=== PATIENT | female | born 1975 | race Caucasian/White ===

== ENCOUNTER → 2017-10-18 | Outpatient (CLI) | payer BC ==
--- NOTE | 2017-10-18 07:51 | MM ---
Reason for exam: screening (asymptomatic). Baseline mammogram. Physical Findings: Nurse did not find any significant physical abnormalities on exam. MG Screening Mammo w CAD Bilateral CC and MLO view(s) were taken. The breast tissue is heterogeneously dense. This may lower the sensitivity of mammography. There is no discrete abnormality. These results were verbally communicated with the patient and result sheet given to the patient on 10/18/17. ASSESSMENT: Negative, BI-RAD 1 RECOMMENDATION: Routine screening mammogram of both breasts in 1 year.
== END | disposition home or self-care (01) ==
LOC: RADMAMWWP 06:59
PROVIDERS: ATTEND Family Medicine
DX: Z12.31 Encounter for screening mammogram for malignant neoplasm of breast (principal)
CPT/HCPCS: 77067

== ENCOUNTER → 2018-09-25 | Outpatient (CLI) | payer BC ==
--- NOTE | 2018-09-25 07:53 | MR ---
EXAMINATION TYPE: MR lumbar spine wo con DATE OF EXAM: 09/25/2018 7:35 AM COMPARISON: NONE HISTORY: Drop foot , Left Multiplanar, MultiSpin echo imaging of the lumbar spine was performed. L1-L2: Normal disc appearance without desiccation. No herniation, protrusion or disc bulging. No ca nal stenosis is present. Foramina are patent bilaterally. L2-L3: Normal disc appearance without desiccation. No herniation, protrusion or disc bulging. No ca nal stenosis is present. Foramina are patent bilaterally. L3-L4: Normal disc appearance without desiccation. No herniation, protrusion or disc bulging. No ca nal stenosis is present. Foramina are patent bilaterally. L4-L5: Moderate disc desiccation noted. Subligamentous posterocentral disc herniation noted measuring of 4 mm AP dimension by 8.5 mm transverse dimension. Mild left lateral recess stenosis suggested. No evidence for central stenosis. Bilateral foramina are patent. L5-S1: Normal disc appearance without desiccation. No herniation, protrusion or disc bulging. No ca nal stenosis is present. Foramina are patent bilaterally. Lumbar segments are intact. No paraspinal masses are identified. Conus medullaris has a normal appe arance. IMPRESSION: 1. L4-5 subligamentous disc herniation with mild left lateral recess stenosis.
== END ==
LOC: RADMRIMAIN 06:58
PROVIDERS: ATTEND Internal Medicine
DX: M48.061 Spinal stenosis, lumbar region without neurogenic claudication (principal); M51.26 Other intervertebral disc displacement, lumbar region
CPT/HCPCS: 72148

== ENCOUNTER → 2021-06-24 | Outpatient (CLI) | payer OTHER ==
--- NOTE | 2021-06-24 16:16 | MR ---
EXAMINATION TYPE: MR brain wo con DATE OF EXAM: 06/24/2021 COMPARISON: None HISTORY: Parasthesias, patient reports multiple sclerosis CONTRAST: Performed utilizing 0 mL intravenous Gadavist gadolinium contrast. TECHNIQUE: Multiplanar, multiecho imaging on a 3.0 Tamiko magnet is performed through the brain. Stud y is performed within 24 hours of arrival to the hospital. The craniovertebral junction is normal. The pituitary is normal. Diffusion-weighted imaging is performed. No abnormal hyperintensity is present to suggest an acute i ntracranial infarct or acute ischemic change. Signal within the brain appears normal. No suspicious white matter changes suggest multiple sclerosis are identified. Ventricles and sulci are appropriate for the patient age. There appears to be narrowing of the left internal auditory canal of uncertain etiology. A suspicious mass is not clearly identified. Erosion is not identified. Consider closer evaluation with CT or MRI of the internal auditory canals. Correlate for left internal auditory canal neurologic changes. IMPRESSIONS: 1. MRI brain appears essentially within normal limits. No suspicious signal abnormality is identified . 2. There appears to be narrowing of the left internal auditory canal of uncertain etiology. Additiona l workup is recommended discussed above.
== END | disposition home or self-care (01) ==
LOC: RADMRIMAIN 14:55
PROVIDERS: ATTEND Psychiatry & Neurology Neurology
DX: G35 Multiple sclerosis (principal); R20.2 Paresthesia of skin
CPT/HCPCS: 70551

== ENCOUNTER → 2021-07-08 | Outpatient (CLI) | payer OTHER ==
--- NOTE | 2021-07-09 05:55 | MR ---
EXAMINATION TYPE: MR iac wo/w con DATE OF EXAM: 07/08/2021 COMPARISON: MR scan of the brain 06/24/2021 HISTORY: Left IAC narrowing, Abnormal MRI 2 weeks ago. CONTRAST: Standard multiplanar, multisequence MRI departmental protocol utilizing 8.5 mL intravenous Gadavist g adolinium contrast. Ventricles have normal size. There is no mass effect nor midline shift. There is no sign of intracran ial hemorrhage. Corpus callosum appears normal. Brainstem is intact. Sella turcica appears normal. Th ere is no evidence of a sellar mass. There is no evidence of orbital mass. There is no evidence of ce rebral edema. The posterior fossa images show some stenosis of the left internal auditory canal. This measures 2.3 mm. The right internal auditory canal appears normal and measures 4.5 mm. The acoustic nerve and vest ibular nerve or in close proximity in the left internal auditory canal. Mastoid sinuses appear intact. There is no sign of mastoiditis. The contrast images show no pathologic enhancement. There is no evidence of cerebellopontine angle ma ss. 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 The left side acoustic nerve and ves tibular nerves have normal signal pattern. Clinical significance is unclear. There is no evidence of a mass. No focal abnormality of the brain. No change compared to recent exam.
== END | disposition home or self-care (01) ==
LOC: RADMRIMAIN 16:26
PROVIDERS: ATTEND Psychiatry & Neurology Neurology
DX: H93.8X2 Other specified disorders of left ear (principal)
CPT/HCPCS: 70553; A9585

== ENCOUNTER → 2022-08-04 | Outpatient (CLI) | payer OTHER ==
--- NOTE | 2022-08-04 21:52 | CA ---
Transthoracic Echo Report Name: Deirdre Garcia Age: 47 Gender: F : 1975 Exam Date: 08/04/2022 11:27 Exam Location: [facility] Ht (in): 67 Wt (lb): 206 Ordering Physician: Braden Leggett MD Attending/Referring Phys: District Associate Judge Montserrat Correia RDCS Procedure CPT: Indications: R00.2 palpitations Cardiac Hx: Technical Quality: Contrast 1: Total Dose (mL): Contrast 2: Total Dose (mL): MEASUREMENTS (Male / Female) Normal Values 2D ECHO LV Diastolic Diameter PLAX 4.8 cm 4.2 - 5.9 / 3.9 - 5.3 cm LV Systolic Diameter PLAX 2.9 cm IVS Diastolic Thickness 1.1 cm 0.6 - 1.0 / 0.6 - 0.9 cm LVPW Diastolic Thickness 1.1 cm 0.6 - 1.0 / 0.6 - 0.9 cm LV Relative Wall Thickness 0.5 RV Internal Dim ED PLAX 2.5 cm LA Volume 53.7 cm??? 18 - 58 / 22 - 52 cm??? M-MODE Aortic Root Diameter MM 2.8 cm LA Systolic Diameter MM 3.5 cm LA Ao Ratio MM 1.2 AV Cusp Separation MM 1.8 cm DOPPLER AV Peak Velocity 139.6 cm/s AV Peak Gradient 7.8 mmHg LVOT Peak Velocity 101.3 cm/s LVOT Peak Gradient 4.1 mmHg MV Area PHT 3.7 cm??? Mitral E Point Velocity 94.5 cm/s Mitral A Point Velocity 79.6 cm/s Mitral E to A Ratio 1.2 MV Deceleration Time 206.3 ms MV E' Velocity 8.6 cm/s Mitral E to MV E' Ratio 11.0 TR Peak Velocity 223.9 cm/s TR Peak Gradient 20.0 mmHg Right Ventricular Systolic Press 25.0 mmHg FINDINGS Left Ventricle Mildly increased left ventricular wall thickness. Normal left ventricular systolic function with no obvious regional wall motion abnormalities. Left ventricular ejection fraction is estimated at 55-60 %. Normal left ventricular diastolic filling pattern. Right Ventricle Normal right ventricular size and function. Right ventricular systolic pressure within normal limits. Right Atrium Normal right atrial size. Left Atrium Mildly increased left atrial volume. Mitral Valve Structurally normal mitral valve. No mitral stenosis. Mild mitral regurgitation. Aortic Valve Trileaflet aortic valve. No aortic valve stenosis or regurgitation. Tricuspid Valve Structurally normal tricuspid valve. Mild tricuspid regurgitation. Pulmonic Valve Structurally normal pulmonic valve. Trace pulmonic regurgitation. Pericardium No pericardial effusion. Aorta Normal size aortic root and proximal ascending aorta. CONCLUSIONS Normal LV systolic function Previewed by: Dr. Milad Salazar MD (Electronically Signed) Final Date: 04 August 2022 21:51
== END | disposition home or self-care (01) ==
LOC: RADECHMAIN 11:00
PROVIDERS: ATTEND Internal Medicine
DX: R00.2 Palpitations (principal)
CPT/HCPCS: 93225; 93226; 93306

== ENCOUNTER 2023-01-25 09:33 | Day surgery (SDC) | payer OTHER ==
--- NOTE | 2023-01-23 13:20 | P.HPOR ---
History of Present Illness H&P Date: 01/23/23 Chief Complaint: Right cubital tunnel syndrome Subjective: This is a 47 year old female that presents today for initial evaluation regarding a several year history of progressively worsening right and left hand paresthesias that she states involve the entire hand, the right side is more severe than the left. She has symptoms that wake her up from sleep every night. She has noticed weakness in the hands. She has tried anti-inflammatories, and avoidance of elbow flexion. She states she used to work at a job for the last 20 years where she had her right elbow bent and resting on table for most part of the day. She denies any neck pain. Physical Examination: RUE: AIN/PIN/Radial/Ulnar/Median motor intact. Radial/Ulnar/Median SILT. 2+/4 Radial/Ulnar pulses palpated. 5/5 APB, 5/5 FDI. Negative Finkelsteins, negative CMC grind, negative Durkan's compression. LUE: AIN/PIN/Radial/Ulnar/Median motor intact. Radial/Ulnar/Median SILT. 2+/4 Radial/Ulnar pulses palpated. 5/5 APB, 5/5 FDI. Negative Finkelsteins, negative CMC grind, positive Durkan's compression. EMG/NCV: B/L Upper extremities on 11/08/22 demonstrates severe right cubital tunnel syndrome, moderate left cubital tunnel syndrome. ImaginV X-ray of the right elbow taken in office today demonstrates no abnormality. 3V X-ray of the left elbow taken in office today demonstrates no abnormality. Impression: 1.) Right cubital tunnel syndrome 2.) Left cubital tunnel syndrome 3.) Left carpal tunnel syndrome Plan: Diagnosis and treatment options were discussed with the patient. The patient has failed conservative treatment and would like to pursue a right open cubital tunnel release followed by a left open cubital tunnel release and endoscopic vs open left carpal tunnel release 6 weeks later. Risks and benefits of surgery including bleeding, infection, damage to surrounding tissue, need for further surgery, possible need to convert to open procedure, residual numbness were discussed and the patient wished to go forward with surgery. -Marc Salomon DO Orthopedic Hand/Upper Extremity Surgeon Past Medical History Past Medical History: Hypertension Additional Past Medical History / Comment(s): arthritis to back, rt elbow sore on extension. 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 Smoking Status: Current every day smoker - Past Family History Father Family Medical History: No Reported History Medications and Allergies Home Medications Medication Instructions Recorded Confirmed Type ALPRAZolam [Xanax] 0.5 mg PO BID 01/19/23 01/19/23 History Dextroamphetamine/Amphetamine 10 mg PO BID 01/19/23 01/19/23 History [Adderall Xr 10 mg Capsule] Lurasidone [Latuda] 60 mg PO DAILY 01/19/23 01/19/23 History Metoprolol Tartrate [Lopressor] 50 mg PO BID 01/19/23 01/19/23 History buPROPion HCL [Wellbutrin XL] 150 mg PO DAILY 01/19/23 01/19/23 History hydrOXYzine HCL [Atarax] 25 mg PO TID 01/19/23 01/19/23 History Allergies Allergy/AdvReac Type Severity Reaction Status Date / Time No Known Allergies Allergy Verified 01/19/23 12:56 Physical Examination Osteopathic Statement: *. No significant issues noted on an osteopathic structural exam other than those noted in the History and Physical/Consult.
[~2023-01-25 09:33] MED LIST: DEXAMETHASONE SOD PHOSPHATE 4 MG/ML 1 ML VIAL IV ONE; HYDROmorphone 0.5 MG/0.5 ML SYRINGE IVP PRN; LACTATED RINGERS 1,000 ML IV SCH; LIDOCAINE 1% (10MG/ML) FOR IV START INTRADERMA PRN; ONDANSETRON 4 MG/2 ML VIAL IVP ONE; Pre Op ABX Message 1 EACH MISC MISCELLANE ONE
[2023-01-25] MEDS ORDERED: LACTATED RINGERS 1,000 ML IV ONE (09:55)
[2023-01-25 10:11] VITALS: RESP 16; TEMP 98.2
[2023-01-25] MEDS ORDERED: LIDOCAINE 2% INJ 20 MG/ML (2 ML VIAL) ONE (11:13)
[2023-01-25] MEDS ORDERED: MIDAZOLAM 2 MG/2 ML VIAL ONE (11:13)
[2023-01-25] MEDS ORDERED: fentaNYL (PF) 50 MCG/ML 2 ML AMP ONE (11:13)
[2023-01-25] MEDS ORDERED: PROPOFOL 10 MG/ML 20 ML VIAL IV ONE (11:13)
[2023-01-25] MEDS ORDERED: BUPIVACAINE (PF) 0.5% 30 ML VIAL SQ ONE ×2 (11:56→12:12)
[2023-01-25 13:19] VITALS: BP 129/73; PULSE 78
--- NOTE | 2023-01-25 16:56 | P.OP ---
Date of Procedure: 01/25/23 Preoperative Diagnosis: Right cubital tunnel syndrome Postoperative Diagnosis: Right cubital tunnel syndrome Procedure(s) Performed: Right open cubital tunnel release, in situ. Anesthesia: GETA Surgeon: Marc Salomon Tassel Maker #1: Geoff Otoole Estimated Blood Loss (ml): 0 Pathology: none sent Condition: stable Disposition: PACU Description of Procedure: This is a 47 year old female who presented today for a right open cubital tunnel release after having failed conservative treatment. Risks and benefits of surgery were discussed with the patient including bleeding, damage to surrounding tissue, infection, need for further surgery as well as risks of a nesthesia including pulmonary embolism and even and the patient wished to proceed with surgical intervention. The patient was seen in the pre-operative area by myself. Consent and H&P were completed and updated. The correct extremity was marked in the pre-operative area by myself and all other questions were answered. Operative Narrative: The patient was brought to the operating room by the department of anesthesia. They remained on the portable stretcher and a rolling hand table was brought to the side of the operative extremity. Pre-operative time out was p erformed indicating the correct patient, procedure and laterality. All in the room agreed. Pre-operative antibiotics were given prior to skin incision. The patient was then drifted off to sleep by the department of anesthesia. A nonsterile tourniquet was then applied to the operative extremity and the right upper extremity was then prepped and draped in normal sterile fashion. The operative extremity was the exsanguinated with an esmarch bandage and the tourniquet was inflated to 250mmHg. Attention was brought to the medial elbow. 15 blade scalpel was used to incise skin in between the medial epicondyle and olecranon in a curvlinear and longitudinal fashion. Blunt dissection was taken down through subcutaneous tissue with tenotomy scissors and branches of the MABCN were identified and protected. Dissection was carried proximally and the ulnar nerve was identified and released in it's entirety to the arcade of [place]. Dissection was then carried distally and centeno's ligament was released at the medial epicondyle, the nerve appeared compressed at this location. Dissection was then carried out further distal and the fascia of the two heads of the FCU were incised and the ulnar nerve was decompressed with [place] and tenotomy scissors and appeared to be tension free. The elbow was the flexed and extended and the ulnar nerve appeared to be stable in a tension free manner. 18 cc's of 0.5% bupivacaine was injected into the subcutaneous tissues. Skin closure was performed with interrupted 4-0 Monocryl sutures followed by running 4-0 Monocryl suture, tourniquet was then let down and the hand had immediate perfusion. The patient was then woken by the department of anesthesia and transferred to PACU in stable condition. Geoff LOPEZ was present to assist in major portions of the case including protection of vital neurovascular structures and retraction. Marc Salomon D.O. Orthopedic Hand/Upper Extremity Surgeon
== END 2023-01-25 13:41 | disposition home or self-care (01) ==
LOC: OR 09:33
PROVIDERS: ATTEND Orthopaedic Surgery Hand Surgery
DX: G56.21 Lesion of ulnar nerve, right upper limb (principal); I10 Essential (primary) hypertension; M19.90 Unspecified osteoarthritis, unspecified site; F41.9 Anxiety disorder, unspecified; F31.9 Bipolar disorder, unspecified; F17.210 Nicotine dependence, cigarettes, uncomplicated; Z79.899 Other long term (current) drug therapy
CPT/HCPCS: 64718; J2250; J1100; J2405; J3010; J2704; J2001

== ENCOUNTER 2023-03-08 06:27 | Day surgery (SDC) | payer OTHER ==
--- NOTE | 2023-03-07 08:55 | P.HPOR ---
History of Present Illness H&P Date: 03/07/23 Subjective: This is a 47 year old female that presents today for initial evaluation regarding a several year history of progressively worsening right and left hand paresthesias that she states involve the entire hand, the right side is more severe than the left. She has symptoms that wake her up from sleep every night. She has noticed weakness in the hands. She has tried anti-inflammatories, and avoidance of elbow flexion. She states she used to work at a job for the last 20 years where she had her right elbow bent and resting on table for most part of the day. She denies any neck pain. Physical Examination: RUE: AIN/PIN/Radial/Ulnar/Median motor intact. Radial/Ulnar/Median SILT. 2+/4 Radial/Ulnar pulses palpated. 5/5 APB, 5/5 FDI. Negative Finkelsteins, negative CMC grind, negative Durkan's compression. LUE: AIN/PIN/Radial/Ulnar/Median motor intact. Radial/Ulnar/Median SILT. 2+/4 Radial/Ulnar pulses palpated. 5/5 APB, 5/5 FDI. Negative Finkelsteins, negative CMC grind, positive Durkan's compression. EMG/NCV: B/L Upper extremities on 11/08/22 demonstrates severe right cubital tunnel syndrome, moderate left cubital tunnel syndrome. ImaginV X-ray of the right elbow taken in office today demonstrates no abnormality. 3V X-ray of the left elbow taken in office today demonstrates no abnormality. Impression: 1.) Right cubital tunnel syndrome 2.) Left cubital tunnel syndrome 3.) Left carpal tunnel syndrome Plan: Diagnosis and treatment options were discussed with the patient. The patient has failed conservative treatment and would like to pursue a right open cubital tunnel release followed by a left open cubital tunnel release and endoscopic vs open left carpal tunnel release 6 weeks later. Risks and benefits of surgery including bleeding, infection, damage to surrounding tissue, need for further surgery, possible need to convert to open procedure, residual numbness were discussed and the patient wished to go forward with surgery. -Marc Salomon DO Orthopedic Hand/Upper Extremity Surgeon Medications and Allergies Home Medications Medication Instructions Recorded Confirmed Type ALPRAZolam [Xanax] 0.5 mg PO BID 01/19/23 01/25/23 History Dextroamphetamine/Amphetamine 10 mg PO BID 01/19/23 01/25/23 History [Adderall Xr 10 mg Capsule] Lurasidone [Latuda] 60 mg PO DAILY 01/19/23 01/25/23 History Metoprolol Tartrate [Lopressor] 50 mg PO BID 01/19/23 01/25/23 History buPROPion HCL [Wellbutrin XL] 150 mg PO DAILY 01/19/23 01/25/23 History hydrOXYzine HCL [Atarax] 25 mg PO TID 01/19/23 01/25/23 History HYDROcodone/APAP 5-325MG [[place] 1 tab PO Q6HR PRN 3 Days #24 tab 01/25/23 Rx 5-325] Allergies Allergy/AdvReac Type Severity Reaction Status Date / Time No Known Allergies Allergy Verified 01/25/23 09:59 Physical Examination Osteopathic Statement: *. No significant issues noted on an osteopathic structural exam other than those noted in the History and Physical/Consult.
[2023-03-07 09:53] VITALS: BMI 31.9
[~2023-03-08 06:27] MED LIST changes: -HYDROmorphone 0.5 MG/0.5 ML SYRINGE IVP PRN; +SCOPOLAMINE 1 MG/72 HR PATCH TRANSDERM ONE; +droPERidol 5 MG/2 ML VIAL IVP ONE
[2023-03-08] MEDS ORDERED: HYDROmorphone 0.5 MG/0.5 ML SYRINGE IVP PRN (07:00)
[2023-03-08 07:02] VITALS: RESP 16
[2023-03-08] MEDS ORDERED: KETOROLAC 15 MG/ML 1 ML VIAL ONE (07:24)
[2023-03-08] MEDS ORDERED: MIDAZOLAM 2 MG/2 ML VIAL ONE (07:24)
[2023-03-08] MEDS ORDERED: PROPOFOL 10 MG/ML 20 ML VIAL IV ONE (07:24)
[2023-03-08] MEDS ORDERED: LIDOCAINE 2% INJ 20 MG/ML (2 ML VIAL) ONE (07:24)
[2023-03-08] MEDS ORDERED: fentaNYL (PF) 50 MCG/ML 2 ML AMP ONE (07:24)
[2023-03-08] MEDS ORDERED: BUPIVACAINE (PF) 0.5% 30 ML VIAL SQ ONE ×2 (07:44)
--- NOTE | 2023-03-08 08:19 | P.OP ---
Date of Procedure: 03/08/23 Preoperative Diagnosis: 1.) Left cubital tunnel syndrome Postoperative Diagnosis: 1.) Left cubital tunnel syndrome Procedure(s) Performed: 1.) Left open cubital tunnel release, in situ. Anesthesia: SOFIE Surgeon: Marc Salomon Layup Worker #1: Geoff Otoole Estimated Blood Loss (ml): 0 Pathology: none sent Condition: stable Disposition: PACU Description of Procedure: This is a 48 year old female who presented today for a left open cubital tunnel release after having failed conservative treatment. Risks and benefits of surgery were discussed with the patient including bleeding, damage to surrounding tissue, infection, need for further surgery as well as risks of anesthesia including pulmonary embolism and even and the patient wished to proceed with surgical intervention. The patient was seen in the pre-operative area by myself. Consent and H&P were completed and updated. The correct extremity was marked in the pre-operative area by myself and all other questions were answered. Operative Narrative: The patient was brought to the operating room by the department of anesthesia. They remained on the portable stretcher and a rolling hand table was brought to the side of the operative extremity. Pre-operative time out was performed indicating the correct patient, procedure and laterality. All in the room agreed. Pre-operative antibiotics were given prior to skin incision. The patient was then drifted off to sleep by the department of anesthesia. A nonsterile tourniquet was then applied to the operative extremity and the left upper extremity was then prepped and draped in normal sterile fashion. The operative extremity was the exsanguinated with an esmarch bandage and the tourniquet was inflated to 250mmHg. Attention was brought to the medial elbow. 15 blade scalpel was used to incise skin in between the medial epicondyle and olecranon in a curvlinear and longitudinal fashion. Blunt dissection was taken down through subcutaneous tissue with tenotomy scissors and branches of the MABCN were identified and protected. Dissection was carried proximally and the ulnar nerve was identified and released in it's entirety to the the intermuscular septum. Dissection was then carried distally and centeno's ligament was released at the medial epicondyle, the nerve appeared severley compressed at this location. Dissection was then carried out further distal and the fascia of the two heads of the FCU were incised and the ulnar nerve was decompressed with [place] and tenotomy scissors and appeared to be tension free. The elbow was the flexed and extended and the ulnar nerve appeared to be stable in a tension free manner 20ccs 0.5% bupivacaine was injected into the subcutaneous tissues. Skin closure was performed with interrupted 3-0 Monocryl sutures followed by running 4-0 Nylon sutures, tourniquet was then let down and the hand had immediate perfusion. Large soft dressing was applied. The patient was then woken by the department of anesthesia and transferred to PACU in stable condition. Geoff LOPEZ was present for the case to assist in major portions of the procedure and protection of neurovascular structures. Marc Salomon D.O. Orthopedic Hand/Upper Extremity Surgeon
[2023-03-08 08:28] VITALS: TEMP 97.1
[2023-03-08 09:14] VITALS: BP 120/78; PULSE 77
== END 2023-03-08 09:31 | disposition home or self-care (01) ==
LOC: OR 06:27
PROVIDERS: ATTEND Orthopaedic Surgery Hand Surgery
DX: G56.22 Lesion of ulnar nerve, left upper limb (principal); G56.02 Carpal tunnel syndrome, left upper limb; I10 Essential (primary) hypertension; F41.9 Anxiety disorder, unspecified; F32.A Depression, unspecified; F17.210 Nicotine dependence, cigarettes, uncomplicated; M19.90 Unspecified osteoarthritis, unspecified site; Z79.899 Other long term (current) drug therapy
CPT/HCPCS: 81025; 64718; J2250; J1100; J2405; J3010; J1885; J2704; J2001

== ENCOUNTER → 2023-05-15 | Outpatient (CLI) | payer OTHER ==
[2023-05-15 15:33] LABS: Basophils # (A) 0.06 X 10*3/uL (0.00-0.10); Basophils % (A) 0.5 %; Eosinophils # (A) 0.19 X 10*3/uL (0.04-0.35); Eosinophils % (A) 1.6 %; HCT 41.3 % (37.2-46.3); HGB 13.4 d/dL (12.0-15.0); Lymphocytes # (A) 2.86 X 10*3/uL (0.90-5.00); Lymphocytes % (A) 23.8 %; MCH 30.5 pg (27.0-32.0); MCHC 32.4 d/dL (32.0-37.0); MCV 93.9 FL (80.0-97.0); Mean Platelet Volume 9.8 FL (9.5-12.2); Monocytes # (A) 0.77 X 10*3/uL (0.20-1.00); Monocytes % (A) 6.4 %; NRBC Per 100 WBC 0 X 10*3/uL (0.00-0.01); Neutrophils # (A) 8.04 X 10*3/uL (1.80-7.70); Neutrophils % (A) 66.9 %; Platelet Count 382 X 10*3/uL (140-440); WBC 12.02 X 10*3/uL (4.50-10.00)
[2023-05-15 15:56] LABS: % Iron Saturation 9.02 (12.00-45.00); Ferritin 24.1 ng/mL (10.0-291.0); Iron 48 UG/DL (50-170); Total Iron Binding Capacity 532 UG/DL (228-460)
[2023-05-15 16:07] LABS: ALT 61 U/L (8-44); AST 59 U/L (13-35); Albumin 4.6 d/dL (3.8-4.9); Alkaline Phosphatase 91 U/L (41-126); Bilirubin, Conjugated <0.20 mg/dL (0.20-0.40); Bilirubin,Unconjugated >0 mg/dL (0.20-1.00); Blood Urea Nitrogen 10.4 mg/dL (9.0-27.0); Calcium 9.3 mg/dL (8.7-10.3); Carbon Dioxide 22.4 mmol/L (21.6-31.8); Chloride 102 mmol/L (96-109); Globulin 2.3 d/dL (1.6-3.3); Glucose 96 mg/dL (70-110); Potassium 4.5 mmol/L (3.5-5.5); Sodium 138 mmol/L (135-145); Total Bilirubin 0.2 mg/dL (0.3-1.2); Total Protein 6.9 d/dL (6.2-8.2)
[2023-05-15 16:08] LABS: Albumin 4.7 d/dL (3.8-4.9)
[2023-05-15 17:37] LABS: Hepatitis A Antibody IgM Nonreactive; Hepatitis B Core IgM Nonreactive; Hepatitis B Surface Antigen Nonreactive; Hepatitis C IgG Antibody Nonreactive
[2023-05-15 17:48] LABS: Ceruloplasmin 30.1 mg/dL (20.0-60.0)
[2023-05-16 06:03] LABS: EBV - VCA IgM 10.2 U/mL (<36.0)
[2023-05-16 13:09] LABS: Smooth Muscle Antibody 3 UNITS (<20)
== END | disposition home or self-care (01) ==
LOC: LABWHC1 11:24
PROVIDERS: ATTEND Internal Medicine
DX: R74.01 Elevation of levels of liver transaminase levels (principal)
CPT/HCPCS: 36415; 80053; 80074; 82103; 82248; 82390; 82525; 82728; 83516; 83540; 83550; 84165; 85025; 86038; 86645; 86665

== ENCOUNTER → 2023-06-01 | Outpatient (CLI) | payer OTHER ==
--- NOTE | 2023-06-01 14:02 | US ---
EXAMINATION TYPE: US arterial LE single level DATE OF EXAM: 06/01/2023 1:21 PM CLINICAL INDICATION: Female, 48 years old with history of [id number] OTHER SPECIFIED SOFT TISSUE DISORDERS ; Pt states feet "fall asleep" History of: Smoker: Yes Hypertension: Yes Diabetic: No Hyperlipidemia: No TIA/CVA: No Previous Vascular Surgery: No CAD: No MT: No Vascular Ulcers: No Claudication: No Gangrene: No Doppler Waveforms: Right: Multiphasic Left: Multiphasic Right Brachial Pressure: 127 Left Brachial Pressure: 128 Ankle-Brachial Indices: Right: 1.3 Left: 1.3 Toe Brachial Indices: Right: 1.0 Left: 0.9 IMPRESSION: Normal WILLIAN /TBI indices.
== END | disposition home or self-care (01) ==
LOC: RADUSWWP 12:54
PROVIDERS: ATTEND Internal Medicine
DX: M79.89 Other specified soft tissue disorders (principal)
CPT/HCPCS: 93922

== ENCOUNTER → 2023-06-20 | Outpatient (CLI) | payer OTHER ==
--- NOTE | 2023-06-20 21:31 | US ---
EXAMINATION TYPE: US liver DATE OF EXAM: 06/20/2023 COMPARISON: NONE CLINICAL INDICATION: Female, 48 years old with history of R74.01 ELEVATED TRANSAMINASES LEVEL; TECHNIQUE: Multiple sonographic images of the right upper quadrant are obtained. FINDINGS: EXAM MEASUREMENTS: Liver Length: 21.5 cm Gallbladder Wall: 0.2 cm CBD: 0.5 cm Right Kidney: 12.3 x 4.4 x 5.5 cm Pancreas: visualized portions wnl, limited by overlying midline bowel gas Liver: enlarged, attenuating, increased echogenicity with 2.2 x 2.3 x 2.2cm hypoechoic area at the g allbladder fossa suggesting focal fat Gallbladder: wnl Evidence for sonographic Ortega's sign: no CBD: visualized portions wnl, limited by overlying bowel gas Right Kidney: wnl IMPRESSION: 1. Hepatomegaly at 21.5 cm with at least moderate hepatic steatosis. Appropriate clinical management advised. 2. No gallstones or biliary ductal dilatation.
== END | disposition home or self-care (01) ==
LOC: RADUSWWP 07:03
PROVIDERS: ATTEND Internal Medicine
DX: K76.0 Fatty (change of) liver, not elsewhere classified (principal); R74.01 Elevation of levels of liver transaminase levels; R16.0 Hepatomegaly, not elsewhere classified
CPT/HCPCS: 76705

== ENCOUNTER 2024-01-26 11:31 | Inpatient (IN) | payer MEDICARE, OTHER ==
[~2024-01-26 11:31] MED LIST changes: -DEXAMETHASONE SOD PHOSPHATE 4 MG/ML 1 ML VIAL IV ONE; +HEPARIN SODIUM,PORCINE (1 ML) 2,500 UNIT in SODIUM CHLORIDE 0.9% 250 ML IRRIGATION PRN; +HEPARIN SODIUM,PORCINE 10,000 UNIT in SODIUM CHLORIDE 0.9% 1,000 ML IRRIGATION PRN; -LACTATED RINGERS 1,000 ML IV SCH; -LIDOCAINE 1% (10MG/ML) FOR IV START INTRADERMA PRN; -ONDANSETRON 4 MG/2 ML VIAL IVP ONE; -Pre Op ABX Message 1 EACH MISC MISCELLANE ONE; -SCOPOLAMINE 1 MG/72 HR PATCH TRANSDERM ONE; -droPERidol 5 MG/2 ML VIAL IVP ONE
[2024-01-26] MEDS: SODIUM CHLORIDE 0.9% 500 ML 500 ML IV ONE (11:50)
[2024-01-26] MEDS ORDERED: fentaNYL (PF) 50 MCG/ML 2 ML AMP ONE (12:13)
[2024-01-26] MEDS ORDERED: VERAPAMIL 2.5 MG/ML 2 ML AMP ONE (12:13)
[2024-01-26] MEDS ORDERED: HEPARIN SODIUM 1,000 UN/ML (10ML VL) ONE (12:13)
[2024-01-26] MEDS ORDERED: LIDOCAINE 1% INJ 10MG/ML (20 ML MDV) ONE (12:13)
[2024-01-26] MEDS ORDERED: NITROGLYCERIN SL TABS 0.4 MG TAB SUBLINGUAL PRN (12:19)
[2024-01-26] MEDS ORDERED: ALPRAZolam 0.5 MG TAB PO PRN (12:19)
[2024-01-26] MEDS: VERAPAMIL SYRINGE (5 MG/10 ML) INTRAARTER ONE (12:30)
[2024-01-26] MEDS: MIDAZOLAM 2 MG/2 ML VIAL IVP ONE (12:33)
[2024-01-26] MEDS: fentaNYL (PF) 50 MCG/1 ML VIAL IVP ONE (12:33)
[2024-01-26] MEDS: HEPARIN SODIUM 1,000 UN/ML (10ML VL) IVP ONE (12:35)
[2024-01-26] MEDS: IOPAMIDOL-370 100ML BTL IVP ONE (13:09)
[2024-01-26] MEDS ORDERED: ATROPINE SULFATE 0.1 MG/ML 10ML SYRINGE IV PRN (14:06)
[2024-01-26] MEDS ORDERED: RX INFO: IV CONTRAST WAS GIVEN 1 EACH MISC MISCELLANE PRN (14:06)
[2024-01-26] MEDS ORDERED: MAG HYDROX/AL HYDROX/SIMETH 30 ML CUP PO PRN (14:06)
[2024-01-26] MEDS ORDERED: ZOLPIDEM 5 MG TAB PO PRN (14:06)
--- NOTE | 2024-01-26 14:20 | P.PRCINT ---
Percutaneous Coronary Int. - Percutaneous Coronary Intervention Percutaneous Coronary Intervention: PROCEDURES PERFORMED: Left coronary angiography, PCI proximal LAD with a 3.5 x 23mm Xience ARLIN post dilated with a 3.75mm NC balloon, IVUS LAD INDICATION: non-STEMI CONSENT:I have discussed the risks, benefits and alternative therapies for the above-mentioned procedure and for both sedation/analgesia as well as necessary blood product administration, if indicated, as they pertain to this patient. The patient has indicated understanding and acceptance of the risks and procedures discussed. PROCEDURE: After the risks, benefits and alternatives of the above mentioned procedure explained in detail with the patient, informed consent was obtained. Patient was taken to the catheterization lab and prepped and draped in usual fashion. A 6-Chinese sheath had previously been placed in the right radial artery. the decision was made to perform PCI of LAD. A 6-Chinese CLS 3.5 guide was using gauge left main. A 0.014 BMW wire was advanced in the distal circumflex to protect the circumflex. An additional 0.014 BMW wire was attempted to be placed in the LAD however eventually switched to a 0.014 was per wire which was advanced to the distal LAD. Predilation was performed with a 2.5 mm balloon. Next a neurovascular ultrasound was performed which showed reference vessel 3.5 mm with diffuse atherosclerosis of the proximal LAD. PCI was performed with a 3.5 x 23 mm Xience ARLIN. Repeat intravascular ultrasound showed some underexpansion therefore a 3.75 noncompliant balloon was used to post dilate. Final angiograms were performed. Pre-intervention there was 99% stenosis and ZUHAIR 2 flow and postintervention there was 0% stenosis and ZUHAIR-3 flow. The right radial sheath was removed and a TR band was placed with hemostasis achieved. The patient tolerated the procedure well. Patient was transported back to the post catheterization holding area in stable condition. Conscious Sedation: Patient was monitored under the direct supervision of myself for conscious sedation using Versed and fentanyl for a total duration of 37 minutes HEMODYNAMICS: Aorta: 138/72 SELECTIVE CORONARY ARTERIOGRAPHY: LEFT MAIN: The left main is a large caliber vessel which bifurcates into the LAD and circumflex. There is no significant stenosis. LEFT ANTERIOR DESCENDING CORONARY ARTERY: LAD is a large caliber vessel which wraps around to the apex. There is a proximal LAD 99% stenosis and otherwise normal LEFT CIRCUMFLEX CORONARY ARTERY: Left circumflex is a moderate caliber vessel without significant stenosis. RIGHT CORONARY ARTERY: The right coronary artery was not imaged however noted to be have no significant stenosis from prior angiogram. FINAL IMPRESSION: 1. CAD as described above including 99% proximal LAD stenosis 2. Status post PCI proximal LAD with a 3.5 x 23mm Xience ARLIN post dilated with a 3.75mm NC balloon 3. Atherosclerotic disease noted on intravascular ultrasound of the proximal LAD however predominantly normal coronary arteries otherwise PLAN: 1. Aggressive risk factor modification per most recent ACC/AHA guidelines. 2. Continue dual antiplatelets with aspirin and Brilinta for 12 months 3. Tobacco cessation advised and patient will attempt to stop smoking. Sidney vasquez referral for [place] quit line
[2024-01-26] MEDS: ATORVASTATIN 80 MG TAB PO STA (15:18)
[2024-01-26] MEDS: ASPIRIN 325 MG TAB PO STA (15:18)
[2024-01-26] MEDS: SODIUM CHLORIDE 0.9% 1,000 ML in EMPTY BAG 1 BAG IV SCH (15:18)
[2024-01-26] MEDS: hydrOXYzine HCL 25 MG TAB PO SCH (15:54)
[2024-01-26] MEDS: ACETAMINOPHEN TAB 325 MG TAB PO PRN (18:15)
[2024-01-26] MEDS: METOPROLOL TARTRATE 50 MG TAB PO SCH (20:39)
[2024-01-26] MEDS: TICAGRELOR 90 MG TAB PO SCH (20:39)
[2024-01-26] MEDS: ALPRAZolam 0.25 MG TAB PO PRN (20:40)
[2024-01-26] MEDS: ATORVASTATIN 80 MG TAB PO SCH (20:40)
[2024-01-26] MEDS: SODIUM CHLORIDE 0.9% 1,000 ML IV SCH (22:24)
--- NOTE | 2024-01-26 23:42 | HP ---
HISTORY AND PHYSICAL CHIEF COMPLAINT: Chest pain and coronary artery disease. HISTORY OF PRESENT ILLNESS: This is first known admission for this 48-year-old white female. She presented to [facility] with "indigestion" and was found to have elevated enzymes and was taken to the labor arbitrator hearing office, where she was found to have a tight LAD stenosis and transferred to this institution for definitive procedure. REVIEW OF SYSTEMS: She has otherwise had no complaints or problems. She does smoke and she has had a history of hypertension, her family history is fairly benign. Remainder of her history can be found in documents accompanying her from [facility]. PHYSICAL EXAMINATION: VITAL SIGNS: Normal. HEAD, EARS, EYES, NOSE, MOUTH AND THROAT: Normal. CHEST: Clear. CARDIAC: Normal. ABDOMEN: Soft, nontender. EXTREMITIES: Normal. NEUROLOGICAL: She is intact. ASSESSMENT: She is admitted to the hospital with diagnoses of: 1. Acute non ST elevation myocardial infarction. 2. Occlusion of the left anterior descending. 3. Nicotine abuse. 4. History of hypertension. PLAN: Cardiac cath with stenting of the LAD. MMODL / IJN: [id number] /
[2024-01-27 06:49] LABS: Basophils % (A) 0 %; Eosinophils # (A) 0.1 k/uL (0-0.7); Eosinophils % (A) 1 %; HGB 13.4 gm/dL (11.4-16.0); Lymphocytes # (A) 2.3 k/uL (1.0-4.8); Lymphocytes % (A) 20 %; MCH 29.6 pg (25.0-35.0); MCHC 31.1 g/dL (31.0-37.0); MCV 95.4 fL (80.0-100.0); Mean Platelet Volume 7.4; Monocytes # (A) 0.5 k/uL (0-1.0); Monocytes % (A) 5 %; Neutrophils # (A) 8.1 k/uL (1.3-7.7); Neutrophils % (A) 71 %; Platelet Count 345 k/uL (150-450); RDW 13.4 % (11.5-15.5); WBC 11.4 k/uL (3.8-10.6)
[2024-01-27 06:58] LABS: African American GFR (CKD) >90 (>60 ml/min/1.73 sqM); Anion Gap 9 mmol/L; Blood Urea Nitrogen 8 mg/dL (7-17); Calcium 8.7 mg/dL (8.4-10.2); Carbon Dioxide 21 mmol/L (22-30); Chloride 109 mmol/L (98-107); Glucose 92 mg/dL (74-99); Non-African American GFR(CKD) >90 (>60 ml/min/1.73 sqM); Potassium 4.3 mmol/L (3.5-5.1); Sodium 139 mmol/L (137-145)
[2024-01-27] MEDS: ASPIRIN 81 MG PO SCH (08:26)
[2024-01-27] MEDS: LURASIDONE 60 MG TAB PO SCH (08:27)
[2024-01-27] MEDS: buPROPion XL 300 MG TAB.ER.24H PO SCH (08:27)
[2024-01-27] MEDS ORDERED: buPROPion XL 150 MG TAB.ER.24H PO SCH (09:00)
[2024-01-27] MEDS ORDERED: LURASIDONE 60 MG TAB PO SCH (09:00)
--- NOTE | 2024-01-27 09:30 | P.CRDCN ---
History of Present Illness Consult date: 01/27/24 Chief complaint: Chest discomfort History of present illness: The patient is a pleasant 48-year-old female patient with a past medical history significant for hypertension and dyslipidemia and smoking who presented to the emergency department at [facility] complaining of chest discomfort. The patient was ruled in for acute coronary event. She underwent a heart catheterization over there and that revealed severe disease involving the proximal left anterior descending artery. She was brought to [facility] where she underwent by Dr. Wagner successful PCI of the proximal left anterior descending artery. The procedure was uneventful. She was seen this morning. She is asymptomatic from the cardiovascular standpoint of view. She reports no pain in the chest and no shortness of breath and no dizziness or ligh theadedness and no feeling of heart racing or fluttering and no presyncope or syncope. She is on dual antiplatelet therapy along with high intensity statin along with beta-annalisa. Smoking cessation was discussed with her in details. The examination revealed regular rhythm with clear breathing sounds bilaterally and no edema was noted. The right radial site is soft and nontender with no bruises. Assessment Acute non-ST elevation myocardial infarction Status post PCI of the LAD Smoking Hypertension Dyslipidemia Plan Smoking cessation Continue dual antiplatelet therapy along with high intensity statin Obtain an echocardiogram to establish LV systolic function Further recommendation to follow the echo Possible discharge home later on today Past Medical History Past Medical History: Hypertension Additional Past Medical History / Comment(s): arthritis to back, rt elbow sore on extension. "nerve surgery" History of Any Multi-Drug Resistant Organisms: None Reported Past Surgical History: Orthopedic Surgery Additional Past Surgical History / Comment(s): rt elbow, Past Anesthesia/Blood Transfusion Reactions: No Reported Reaction Additional Past Anesthesia/Blood Transfusion Reaction / Comment(s): pt has noc analyst with anesthesia Past Psychological History: ADD/ADHD, Anxiety, Bipolar, Depression, Panic Disorder Smoking Status: Current every day smoker Past Alcohol Use History: Occasional Additional Past Alcohol Use History / Comment(s): smokes 1/2 ppd since age 27 Past Drug Use History: None Reported - Past Family History Father Family Medical History: No Reported History Mother Family Medical History: No Reported History Medications and Allergies Home Medications Medication Instructions Recorded Confirmed Type ALPRAZolam [Xanax] 0.5 mg PO TID PRN 01/19/23 01/26/24 History Metoprolol Tartrate [Lopressor] 50 mg PO BID 01/19/23 01/26/24 History Atomoxetine HCl [Strattera] 80 mg PO DAILY 01/26/24 01/26/24 History Diclofenac Sodium [Diclofenac 1 applic TOPICAL QID PRN 01/26/24 01/26/24 History Sodium 1%] Furosemide [Lasix] 20 mg PO DAILY 01/26/24 01/26/24 History Lurasidone HCl [Latuda] 120 mg PO DAILY 01/26/24 01/26/24 History Nicotine Gum (Polacrilex) 2 mg BUCCAL Q2H PRN 01/26/24 01/26/24 History [Nicorette] buPROPion XL [Wellbutrin XL] 300 mg PO DAILY 01/26/24 01/26/24 History lamoTRIgine 200 mg PO BID 01/26/24 01/26/24 History Allergies Allergy/AdvReac Type Severity Reaction Status Date / Time No Known Allergies Allergy Verified 01/26/24 17:22 Physical Exam Vitals: Vital Signs Temp Pulse Resp BP Pulse Ox 01/27/24 03:56 75 16 109/71 95 01/27/24 00:00 78 17 96/59 93 L 01/26/24 20:00 97.6 F 67 17 109/68 96 01/26/24 15:51 71 17 111/75 96 01/26/24 15:21 67 16 119/77 95 01/26/24 14:49 73 17 120/79 95 01/26/24 14:28 65 16 117/71 97 01/26/24 14:08 68 16 120/65 98 01/26/24 13:53 67 16 112/67 96 01/26/24 13:38 66 16 103/68 96 01/26/24 13:23 66 16 107/68 97 Intake and Output 01/26/24 01/27/24 01/27/24 22:59 06:59 14:59 Intake Total 900 540 Balance 900 540 Intake: Oral 900 540 Other: Voiding Method Toilet Toilet # Voids 1 1 Results 01/27/24 05:54 01/27/24 05:54 CBC 01/27/24 Range/Units 05:54 WBC 11.4 H (3.8-10.6) k/uL RBC 4.50 (3.80-5.40) m/uL Hgb 13.4 (11.4-16.0) gm/dL Hct 43.0 (34.0-46.0) % Plt Count 345 (150-450) k/uL Comprehensive Metabolic Panel 01/27/24 Range/Units 05:54 Sodium 139 (137-145) mmol/L Potassium 4.3 (3.5-5.1) mmol/L Chloride 109 H (98-107) mmol/L Carbon Dioxide 21 L (22-30) mmol/L BUN 8 (7-17) mg/dL Creatinine 0.62 (0.52-1.04) mg/dL Glucose 92 (74-99) mg/dL Calcium 8.7 (8.4-10.2) mg/dL Current Medications Generic Name Dose Route Start Last Admin Trade Name Freq PRN Reason Stop Dose Admin Acetaminophen 650 mg 01/26/24 17:43 01/26/24 18:15 Acetaminophen Tab 325 Mg Tab PO 650 mg Q6HR PRN Administration Fever and/ or Pain Al Hydroxide/Mg Hydroxide 30 ml 01/26/24 14:06 Mag Hydrox/Al Hydrox/Simeth 30 Ml Cup PO Q4HR PRN Heartburn Alprazolam 0.25 mg 01/26/24 12:19 01/26/24 20:40 Alprazolam 0.25 Mg Tab PO 0.25 mg Q6HR PRN Administration Mild Anxiety Alprazolam 0.5 mg 01/26/24 12:19 Alprazolam 0.5 Mg Tab PO Q6HR PRN Moderate Anxiety Aspirin 81 mg 01/27/24 09:00 01/27/24 08:26 Aspirin 81 Mg PO 81 mg DAILY TAON Administration Atorvastatin Calcium 80 mg 01/26/24 21:00 01/26/24 20:40 Atorvastatin 80 Mg Tab PO 80 mg HS TOAN Administration Atropine Sulfate 0.5 mg 01/26/24 14:06 Atropine Sulfate 0.1 Mg/Ml 10ml Syringe IV ONCE PRN Symptomatic Bradycardia Bupropion HCl 300 mg 01/27/24 09:00 01/27/24 08:27 Bupropion Xl 300 Mg Tab.Er.24h PO 300 mg DAILY TOAN Administration Hydroxyzine HCl 25 mg 01/26/24 16:00 01/27/24 08:27 Hydroxyzine Hcl 25 Mg Tab PO Not Given TID TOAN Lurasidone HCl 120 mg 01/27/24 09:00 01/27/24 08:27 Lurasidone 60 Mg Tab PO Not Given DAILY TOAN Metoprolol Tartrate 50 mg 01/26/24 21:00 01/27/24 08:26 Metoprolol Tartrate 50 Mg Tab PO 50 mg BID TOAN Administration Miscellaneous Information 1 each 01/26/24 14:06 Rx Info: Iv Contrast Was Given 1 Each Misc MISCELLANE 01/28/24 14:06 DAILY PRN Per Protocol Nitroglycerin 0.4 mg 01/26/24 12:19 Nitroglycerin Sl Tabs 0.4 Mg Tab SUBLINGUAL Q5M PRN Chest Pain Adderall Xr 10 Mg 10 mg 01/26/24 21:00 01/27/24 08:09 Capsule PO Not Given BID [facility] Ticagrelor 90 mg 01/26/24 21:00 01/27/24 08:26 Ticagrelor 90 Mg Tab PO 90 mg BID TOAN Administration Protocol Zolpidem Tartrate 5 mg 01/26/24 14:06 Zolpidem 5 Mg Tab PO HS PRN Insomnia Intake and Output 01/26/24 01/27/24 01/27/24 22:59 06:59 14:59 Intake Total 900 540 Balance 900 540 Intake: Oral 900 540 Other: Voiding Method Toilet Toilet # Voids 1 1 01/27/24 05:54 01/27/24 05:54
[2024-01-27 09:36] VITALS: TEMP 98
[2024-01-27 12:28] VITALS: BMI 29.0
[2024-01-27 13:09] VITALS: BP 126/70; PULSE 65; RESP 18
--- NOTE | 2024-01-27 15:38 | CA ---
Transthoracic Echo Report Name: Deirdre Garcia Age: 48 Gender: F : 1975 Exam Date: 01/27/2024 10:31 Exam Location: [facility] Ht (in): 68 Wt (lb): 191 Ordering Physician: Jose Parnell MD ([id number]) Attending/Referring Phys: [employer] Crew Member Brandie Ling RDCS Procedure CPT: Indications: nstemi Cardiac Hx: Technical Quality: Good Contrast 1: Total Dose (mL): Contrast 2: Total Dose (mL): MEASUREMENTS (Male / Female) Normal Values 2D ECHO LV Diastolic Diameter PLAX 5.4 cm 4.2 - 5.9 / 3.9 - 5.3 cm LV Systolic Diameter PLAX 3.5 cm IVS Diastolic Thickness 1.0 cm 0.6 - 1.0 / 0.6 - 0.9 cm LVPW Diastolic Thickness 0.9 cm 0.6 - 1.0 / 0.6 - 0.9 cm LV Relative Wall Thickness 0.4 RV Internal Dim ED PLAX 2.9 cm LA Systolic Diameter LX 3.7 cm 3.0 - 4.0 / 2.7 - 3.8 cm LV Diastolic Volume MOD BP 92.9 cm??? 67 - 155 / 56 - 104 cm??? LV Systolic Volume MOD BP 40.3 cm??? 22 - 58 / 19 - 49 cm??? LV Ejection Fraction MOD BP 56.7 % >= 55 % LV Cardiac Index MOD BP 1508.0 cm???/min???m??? LV Diastolic Volume MOD 4C 98.7 cm??? LV Systolic Volume MOD 4C 43.1 cm??? LV Ejection Fraction MOD 4C 56.3 % LV Cardiac Index MOD 4C 1592.3 cm???/min???m??? LV Diastolic Length 4C 7.8 cm LV Systolic Length 4C 6.8 cm LV Diastolic Volume MOD 2C 108.9 cm??? LV Systolic Volume MOD 2C 48.6 cm??? LV Ejection Fraction MOD 2C 55.4 % LV Cardiac Index MOD 2C 1727.5 cm???/min???m??? LV Diastolic Length 2C 7.8 cm LV Systolic Length 2C 6.6 cm LA Volume 62.1 cm??? 18 - 58 / 22 - 52 cm??? LA Volume Index 30.1 cm???/m??? 16 - 28 cm???/m??? M-MODE Aortic Root Diameter MM 2.7 cm MV E Point Septal Separation 0.8 cm AV Cusp Separation MM 1.9 cm DOPPLER AV Peak Velocity 149.1 cm/s AV Peak Gradient 8.9 mmHg MV Area PHT 3.5 cm??? Mitral E Point Velocity 98.7 cm/s Mitral A Point Velocity 71.8 cm/s Mitral E to A Ratio 1.4 MV Deceleration Time 215.9 ms TR Peak Velocity 197.4 cm/s TR Peak Gradient 15.6 mmHg Right Ventricular Systolic Press 20.6 mmHg FINDINGS Left Ventricle Left ventricular ejection fraction is estimated at 50 %. Mildly increased septal wall thickness. Mild left ventricular dilatation. Apical septum hypokinesis, apical anterior hypokinesis Right Ventricle Normal right ventricular size. Right ventricular systolic pressure within normal limits. Right Atrium Normal right atrial size. Left Atrium Mildly increased left atrial volume. Mildly increased left atrial area. Mitral Valve Structurally normal mitral valve. No mitral stenosis, regurgitation or prolapse. Aortic Valve Trileaflet aortic valve. No aortic valve stenosis or regurgitation. Tricuspid Valve Structurally normal tricuspid valve. Trace to mild tricuspid regurgitation. Pulmonic Valve Structurally normal pulmonic valve. Mild pulmonic regurgitation. Pericardium No pericardial effusion. Aorta Normal size aortic root and proximal ascending aorta. CONCLUSIONS Low-normal LV systolic function with EF at 50% Previewed by: Dr. Jose Parnell MD (Electronically Signed) Final Date: 27 January 2024 15:37
--- NOTE | 2024-01-28 03:42 | DS ---
DISCHARGE SUMMARY CHIEF COMPLAINT: NSTEMI. HISTORY OF PRESENT ILLNESS AND PHYSICAL EXAMINATION: Details of this lady's history and physical can be found in the initial workup. LABORATORY STUDIES: While she is in a hospital, she had laboratory studies, details of which can be found in the laboratory section of her chart. COURSE IN HOSPITAL: After admission, she was placed on bedrest, taken to lab pack chemist, where she underwent stenting in the LAD. Postoperatively, she had no problems including arrhythmias, chest pain, shortness of breath, etc. It was felt that she could go home on the . FINAL DIAGNOSES: 1. Acute NSTEMI. 2. Nicotine abuse. 3. Hypertension. OPERATIONS: Cardiac cath with stenting of the LAD. CONSULTATIONS: Cardiology, she is improved. MMKAYLA / SATISHN: [id number] /
== END 2024-01-27 16:50 | disposition home or self-care (01) | DRG 322 ==
LOC: 3SCARD 13:01
PROVIDERS: ADMIT Family Medicine; ATTEND Family Medicine
PROC: B240ZZ3 Ultrasonography of Single Coronary Artery, Intravascular (ICD-10-PCS; principal; 2024-01-26 14:00)
PROC: 027034Z Dilation of Coronary Artery, One Artery with Drug-eluting Intraluminal Device, Percutaneous Approach (ICD-10-PCS; principal; 2024-01-26 14:00)
PROC: B2111ZZ Fluoroscopy of Multiple Coronary Arteries using Low Osmolar Contrast (ICD-10-PCS; principal; 2024-01-26 14:00)
DX: I21.4 Non-ST elevation (NSTEMI) myocardial infarction (principal); E78.5 Hyperlipidemia, unspecified; F31.9 Bipolar disorder, unspecified; I10 Essential (primary) hypertension; I25.10 Atherosclerotic heart disease of native coronary artery without angina pectoris; M47.819 Spondylosis without myelopathy or radiculopathy, site unspecified; F90.9 Attention-deficit hyperactivity disorder, unspecified type; F41.0 Panic disorder [episodic paroxysmal anxiety]; F17.210 Nicotine dependence, cigarettes, uncomplicated; Z71.6 Tobacco abuse counseling; Z79.899 Other long term (current) drug therapy
CPT/HCPCS: 80048; 83695; 85025; 92978; 93306; 94760

== ENCOUNTER → 2024-03-12 | Outpatient (CLI) | payer MEDICARE, OTHER ==
--- NOTE | 2024-03-12 21:08 | MM ---
Reason for Exam: Screening (asymptomatic). Last mammogram was performed 1 year(s) and 1 month(s) ago. Patient History: Menarche at age 15. First Full-Term at age 23. Premenopausal. Last menstrual period: 03/12/2024 Risk Values: Beatris 5 year model risk: 0.8%. NCI Lifetime model risk: 8.4%. Prior Study Comparison: 10/18/2017 Bilateral Screening Mammogram, [facility]. 02/13/2023 Bilateral MG screening mammo w CAD, [facility]. Tissue Density: The breasts are heterogeneously dense, which may obscure small masses. Findings: Analyzed By CAD. Areas of asymmetric density are unchanged. There is no suspicious group of microcalcifications or new suspicious mass in either breast. Overall Assessment: Benign, BI-RAD 2 Management: Screening Mammogram of both breasts in 1 year. . Patient should continue monthly self-breast exams. A clinical breast exam by your physician is recommended on an annual basis. This exam should not preclude additional follow-up of suspicious palpable abnormalities. Note on Beatris scores and lifetime risk: 1. A Beatris score greater than 3% is considered moderate risk. If this is the case, consider specialist referral to assess eligibility for a risk reducing agent. 2. If overall lifetime risk for the development of breast cancer is 20% or higher, the patient may qualify for future screening with alternating mammogram and breast MRI. Electronically signed and approved by: Ericka Ratliff M.D. Radiologist
== END | disposition home or self-care (01) ==
LOC: RADMAMWWP 06:48
PROVIDERS: ATTEND Internal Medicine
DX: Z12.31 Encounter for screening mammogram for malignant neoplasm of breast (principal)
CPT/HCPCS: 77067

== ENCOUNTER → 2024-04-19 | Outpatient (CLI) | payer MEDICARE ==
--- NOTE | 2024-04-21 10:19 | US ---
EXAMINATION TYPE: US transvaginal DATE OF EXAM: 04/19/2024 COMPARISON: NONE CLINICAL INDICATION: Female, 49 years old with history of N93.9 ABNORMAL UTERINE AND VAGINAL BLEEDING ; TECHNIQUE: Transvaginal (TV). sonographic images were medically necessary to better assess the foll owing anatomy: Date of LMP: 04/02/24 EXAM MEASUREMENTS: Uterus: 9.3 x 5.0 x 5.3 cm Endometrial Stripe: 0.99 cm Right Ovary: 3.4 x 1.8 x 2.1 cm Left Ovary: 5.7 x 2.2 x 3.7 cm 1. Uterus: Hypoechoic lesion, possible fibroid, right uterus measuring 1.4 x 1.1 x 1.2 cm. Adjacent a nechoic area noted measuring 1.2 x 0.3 x 0.5 cm 2. Endometrium: Appears wnl 3. Right Ovary: Appears wnl 4. Left Ovary: Cystic lesion measuring 1.8 x 1.7 x 2.0 cm. Two solid lesions are also noted: (1) - h ypoechoic mass with peripheral vascularity measuring 3.5 x 1.9 x 2.4 cm. (2) - hypoechoic, somewhat c omplex mass with vascularity measuring 2.2 x 1.8 x 2.0cm. Spectral, color and waveform doppler imaging shows good arterial and venous flow within the left ov kim; there is no evidence for ovarian torsion. 5. Bilateral Adnexa: wnl 6. Posterior cul-de-sac: wnl IMPRESSION: 1. Leiomyomatous uterus. 2. Nonspecific ovarian lesions as discussed above on the left. Follow-up in 6 weeks is advised.
== END | disposition home or self-care (01) ==
LOC: RADUSWWP 15:15
PROVIDERS: ATTEND Internal Medicine
DX: N93.9 Abnormal uterine and vaginal bleeding, unspecified (principal); D25.9 Leiomyoma of uterus, unspecified
CPT/HCPCS: 76830